=== PATIENT | female | born 1975 | race Caucasian/White ===

== ENCOUNTER 2019-06-19 05:54 | Day surgery (SDC) | payer MEDICAID ==
[~2019-06-19] VITALS: Ht 154.9 cm; Wt 95.3 kg
[~2019-06-19 05:54] MED LIST: [UNRECOGNIZED DRUG - CODE] PO
[2019-06-19] MEDS ORDERED: LACTATED RINGERS 1,000 ML IV SCH (06:00)
[2019-06-19] MEDS ORDERED: BUPIVACAINE HCL/PF 0.5% (5MG/ML) 10ML ONE ×2 (06:16→06:17)
[2019-06-19] MEDS ORDERED: SKIN ADHESIVE 0.7 GM EA TOP ONE (06:16)
[2019-06-19] MEDS ORDERED: VASOPRESSIN 20 UNIT/ML 1ML ONE (06:17)
[2019-06-19 07:04] LABS: BASOPHILS % 1.1 % (0.0-2.0); EOSINOPHILS % 0.7 % (0.0-5.0); HEMOGLOBIN. 14.1 g/dL (12.0-16.0); LYMPHOCYTES % 21.9 % (20.0-50.0); MEAN CORPUSCULAR HEMOGLOBIN 29.1 pg (28.0-32.0); MEAN PLATELET VOLUME 9.2 fl (7.4-10.4); NEUTROPHILS % 69.3 % (40.0-76.0); PLATELET 294 x1000/uL (130-400); RED BLOOD CELL COUNT 4.83 mill/uL (4.2-5.4); RED CELL DISTRIBUTION WIDTH 15.2 % (11.6-14.6)
[2019-06-19 07:06] LABS: CHLORIDE 114 mEq/L (98-107)
[2019-06-19] MEDS ORDERED: IBUP100T53 PO (07:07)
[2019-06-19] MEDS ORDERED: TOPUD MT (07:07)
[2019-06-19 07:19] LABS: CLARITY URINE CLEAR (CLEAR); COLOR URINE YELLOW (YELLOW); KETONES URINE NEGATIVE (NEGATIVE); LEUKOCYTE ESTERASE URINE 1+ (NEGATIVE); NITRITE URINE POSITIVE (NEGATIVE); OCCULT BLOOD URINE 1+ (NEGATIVE); PH URINE 5.5 (4.5-8.0); PROTEIN URINE NEGATIVE (NEGATIVE); SPECIFIC GRAVITY URINE 1.021 (1.005-1.030); UROBILINOGEN URINE 0.2 E.U./dL (0.2-1.0)
[2019-06-19 07:49] LABS: UCG SCREEN NEGATIVE
[2019-06-19] MEDS ORDERED: MIDAZOLAM HCL 2 MG/2 ML VIAL ONE (07:53)
[2019-06-19] MEDS ORDERED: FENTANYL CITRATE/PF 50MCG/ML 2ML VIAL ONE ×2 (07:53→10:14)
[2019-06-19] MEDS ORDERED: SUCCINYLCHOLINE CHLORIDE 200MG/10ML IV ONE (07:54)
[2019-06-19] MEDS ORDERED: PROPOFOL 200MG/20ML VIAL IV ONE (07:54)
[2019-06-19] MEDS ORDERED: LIDOCAINE HCL/PF 1% 10 MG/ML 5ML VIAL ONE (07:54)
[2019-06-19] MEDS ORDERED: ROCURONIUM BROMIDE 10MG/ML VIAL 5ML IV ONE (07:54)
[2019-06-19] MEDS ORDERED: SODIUM CHLORIDE 0.9% 10ML VIAL ONE ×3 (07:55→10:06)
[2019-06-19] MEDS ORDERED: CEFAZOLIN SODIUM 1000MG/VIAL ONE (07:55)
[2019-06-19] MEDS ORDERED: SEVOFLURANE 250 ML LIQUID INH ONE (08:23)
[2019-06-19] MEDS ORDERED: ONDANSETRON HCL 4MG/2ML INJ ONE (08:30)
[2019-06-19] MEDS ORDERED: DEXAMETHASONE 4MG/ML 1ML VIAL ONE (08:30)
[2019-06-19] MEDS ORDERED: METOCLOPRAMIDE HCL 10MG/2ML VIAL ONE (08:30)
[2019-06-19] MEDS ORDERED: NEOSTIGMINE METHYLSULFATE 1MG/ML 10 ML VIAL ONE (09:36)
[2019-06-19] MEDS ORDERED: GLYCOPYRROLATE 0.2 MG/ML 2ML VIAL ONE (09:36)
[2019-06-19] MEDS ORDERED: HYDRALAZINE 20MG/ML VIAL ONE (10:06)
[2019-06-19] MEDS ORDERED: ONDANSETRON HCL 4MG/2ML INJ IV PRN (10:15)
[2019-06-19] MEDS ORDERED: IBUPROFEN 600MG TABLET PO PRN (10:15)
[2019-06-19] MEDS ORDERED: HYDROCODONE/ACETAMINOPHEN 5/325MG TABLET PO PRN (10:15)
[2019-06-19] MEDS ORDERED: KETOROLAC 30MG/ML VIAL ONE (10:16)
[2019-06-19] MEDS: HYDROMORPHONE HCL/PF 2MG/ML CPJ IV PRN ×3 (10:44→11:32)
[2019-06-19] MEDS ORDERED: MEPERIDINE HCL/PF 25MG/ML CPJ IV NR (11:00)
[2019-06-19 11:32] VITALS: BP 138/74
[2019-06-19] MEDS ORDERED: ONDANSETRON HCL 4MG/2ML INJ IV NR (13:45)
== END 2019-06-19 14:05 | disposition home or self-care (01) ==
LOC: OR 05:54
PROVIDERS: ATTEND Obstetrics & Gynecology
DX: D25.9 Leiomyoma of uterus, unspecified (principal); N95.9 Unspecified menopausal and perimenopausal disorder; Z87.898 Personal history of other specified conditions; Z79.899 Other long term (current) drug therapy; Z68.39 Body mass index [BMI] 39.0-39.9, adult; Z98.890 Other specified postprocedural states; Z98.51 Tubal ligation status
CPT/HCPCS: 36415; 58552; 80053; 81003; 81025; 85025; 86850; 86900; 86901; 87077; 87086; 87186; 88307; J0330; J0360; J0690; J1100; J1170; J1885; J2175; J2250; J2405; J2704; J2710; J2765; J3010; J3490; S2900